=== PATIENT | male | born 1955 | race Two or more races ===

== ENCOUNTER → 2016-11-29 | Outpatient (CLI) | payer BC | END | disposition home or self-care (01) | LOC: HKI 14:01 | PROVIDERS: ATTEND Orthopaedic Surgery | DX: M16.0 Bilateral primary osteoarthritis of hip (principal); M25.552 Pain in left hip; M25.551 Pain in right hip ==

== ENCOUNTER → 2016-12-08 | Outpatient (CLI) | payer BC ==
[~2016-12-08] MED LIST: ASPI325T32 PO; BENA20TA48 PO; CLOP75TA27 PO; HYDR-906 PO; METF-382 PO; NASACORT; OMEP40CA6 PO; ROSU20TA PO; TRAM50TA2 PO
== END | disposition home or self-care (01) ==
LOC: HKI 10:23
PROVIDERS: ATTEND Orthopaedic Surgery
DX: Z01.818 Encounter for other preprocedural examination (principal); M16.0 Bilateral primary osteoarthritis of hip; M25.551 Pain in right hip; M25.552 Pain in left hip
CPT/HCPCS: G0463

== ENCOUNTER 2016-12-14 05:30 | Inpatient (IN) | payer BC ==
[2016-12-13 11:27] VITALS: BMI 32.8
[~2016-12-14] VITALS: Ht 170.2 cm; Wt 100.3 kg
[2016-12-14] VITALS (27 sets, daily range): BP systolic 119–165; BP diastolic 67–90; PULSE 68–104; RESP 14–23; Ht 170.2 cm; Wt 100.3 kg
[2016-12-14] MEDS ORDERED: OMEP40CA6 PO (06:44)
[2016-12-14] MEDS ORDERED: BENA20TA48 PO (06:44)
[2016-12-14] MEDS ORDERED: CLOP75TA27 PO (06:44)
[2016-12-14] MEDS ORDERED: ROSU20TA PO (06:48)
[2016-12-14] MEDS ORDERED: NASACORT (06:48)
[2016-12-14] MEDS ORDERED: METF-382 PO (06:48)
[2016-12-14] MEDS ORDERED: oxyCODONE (CR) 10 MG TAB [oxyCONTIN] X1 DOSE PO ONE (07:00)
[2016-12-14] MEDS ORDERED: SOD CHLORIDE 0.9% IV ONE (07:00)
[2016-12-14] MEDS ORDERED: PAIN COCKTAIL-CEFUROXIME IRR ONE ×7 (07:00)
[2016-12-14] MEDS ORDERED: CEFAZOLIN 2GM/50 ML (PMX) 50 ML X1 BEFORE INCISION IVPB ONE (07:00)
[2016-12-14] MEDS ORDERED: PREGABALIN 300 MG PO X1 PO ONE (07:00)
[2016-12-14] MEDS ORDERED: CELECOXIB 400 MG PO X1 DOSE PO ONE (07:00)
[2016-12-14] MEDS ORDERED: TRANEXAMIC ACID IV ONE (07:00)
[2016-12-14] MEDS ORDERED: BUPIVACAINE LIPOSOME/PF 266 MG/20 ML VIAL INFIL ONE (07:00)
[2016-12-14] MEDS ORDERED: traMADOL 50 MG TAB X 1 DOSE PO ONE (07:00)
[2016-12-14] MEDS ORDERED: TRANEXAMIC ACID 950 MG in SOD CHLORIDE 0.9% 100 ML IVPB ONE (07:00)
[2016-12-14] MEDS ORDERED: LACTATED RINGER'S 1,000 ML IV SCH (07:00)
[2016-12-14] MEDS ORDERED: MIDAZOLAM 1 MG/ML 2 ML INJ ONE (07:06)
[2016-12-14] MEDS ORDERED: ROCURONIUM 50 MG INJ ONE (07:06)
[2016-12-14] MEDS ORDERED: PROPOFOL 100 ML ONE (07:06)
[2016-12-14] MEDS ORDERED: FENTAnyl 50 MCG/ML VIAL ONE (07:06)
[2016-12-14] MEDS ORDERED: CEFAZOLIN 1 GM INJ ONE (07:06)
[2016-12-14] MEDS ORDERED: GLYCOPYRROLATE 1 MG INJ ONE (07:06)
[2016-12-14] MEDS ORDERED: ONDANSETRON 4 MG INJ ONE (07:06)
[2016-12-14] MEDS ORDERED: LIDOCAINE 100 MG SYRINGE ONE (07:06)
[2016-12-14] MEDS ORDERED: DEXAMETHASONE 4 MG/ML 1 ML INJ ONE (07:06)
[2016-12-14] MEDS ORDERED: NEOSTIGMINE 3 MG/3 ML SYRINGE ONE (07:06)
--- NOTE | 2016-12-14 07:18 | HPN ---
Date/Time of Note Date/Time of Note DATE: 12/14/16 TIME: 07:17 Interval H&P Admission Note Pt. seen H&P reviewed: No system changes No change from H&P by Dr. Juan Miguel Henry on 12/07/16 MOSHE ZENDEJAS MD Dec 14, 2016 07:17
[2016-12-14] MEDS ORDERED: VANCOMYCIN 1 GM INJ ONE (08:11)
[2016-12-14] MEDS ORDERED: SODIUM CL BACTERIOSTATIC 30 ML INJ ONE (08:11)
[2016-12-14] MEDS ORDERED: POLYMYXIN B 500000 UNIT INJ ONE (08:11)
[2016-12-14] MEDS ORDERED: MEPERIDINE 25 MG INJ IV PRN (08:30)
[2016-12-14] MEDS ORDERED: hydrALAzine 20 MG INJ IV PRN (08:30)
[2016-12-14] MEDS ORDERED: HYDROmorphONE (0.2 MG/ML) 10ML SYG IV PRN ×3 (08:30)
[2016-12-14] MEDS ORDERED: MIDAZOLAM 1 MG/ML 2 ML INJ IV PRN (08:30)
[2016-12-14] MEDS ORDERED: TRIMETHOBENZAMIDE 100 MG/ML VIAL IM PRN (08:30)
[2016-12-14] MEDS ORDERED: EPHEDrine SULFATE 50 MG/5 ML SYG IV PRN (08:30)
[2016-12-14] MEDS ORDERED: ONDANSETRON 4 MG INJ IV PRN ×2 (08:30→14:00)
[2016-12-14] MEDS ORDERED: DIPHENHYDRAMINE 50 MG INJ IV PRN (08:30)
[2016-12-14] MEDS ORDERED: LABETALOL HCL 20MG INJ IV PRN (08:30)
[2016-12-14] MEDS ORDERED: FENTAnyl 50 MCG/ML VIAL IV PRN ×3 (08:30)
[2016-12-14] MEDS ORDERED: THROMBIN 5000 UNIT VIAL ONE (09:14)
[2016-12-14] MEDS ORDERED: BACITRACIN 50000 UNITS INJ IRR ONE (09:20)
[2016-12-14] MEDS ORDERED: ETOMIDATE 20 MG INJ ONE (09:31)
[2016-12-14] MEDS ORDERED: EXPAREL NOTE (BUPIVICAINE LIPOSOMAL) XX SCH (10:00)
[2016-12-14] MEDS: LACTATED RINGER'S 1,000 ML IV SCH ×2 (10:01→17:52)
--- NOTE | 2016-12-14 10:15 | PN ---
Date/Time of Note Date/Time of Note DATE: 12/14/16 TIME: 10:13 Assessment/Plan Lines/Catheters IV Catheter Type (from Nrsg): Peripheral IV Assessment/Plan Assessment/Plan Stable in PACU, s/p left anterior SHEILA -cont abx -pain meds as needed -ASA/SCDs for DVT prophylaxis -OOB with PT -monitor drain -check AM labs -d/c keating in AM XR of the left hip is pending at this time Subjective 24 Hr Interval Summary Doing well in PACU. Denies any pain. Sleepy from anesthesia. Moving all extremities. Exam/Review of Systems Vital Signs Vitals Vital Signs Date Time Temp Pulse Resp B/P Pulse Ox O2 Delivery O2 Flow Rate FiO2 12/14/16 06:54 97.4 68 18 145/90 97 Room Air Exam Free Text/Dictation Dressing dry Incision clean, dry, and intact without redness or drainage 5/5 Quadriceps, Tibialis Anterior, EHL, Gastroc, Soleus, Peroneals Normal sensation Palpable DT/PT, CR <2 sec No distal edema VON PIERSON PA-C Dec 14, 2016 10:15
--- NOTE | 2016-12-14 10:18 | OPPN ---
Date/Time of Note Date/Time of Note DATE: 12/14/16 TIME: 10:17 Operative/Procedure Note Dictation # [id number] Pre-Operative Diagnosis Left Hip OA Post-Operative Diagnosis Same Procedure Left Anterior SHEILA Surgeon: MOSHE ZENDEJAS MD Serging Machine Operator Automatic: VON PIERSON PA-C Anesthesiologist: Dakota Scott M.D. Findings Severe OA Blood Usage/Administration None Implants/Grafts Depuy SHEILA Estimated blood loss: other Drains Hemovac x 1 Specimens Femoral Head Complications: None Anesthesia type: spinal MOSHE ZENDEJAS MD Dec 14, 2016 10:18
[2016-12-14 10:28] LABS: HEMATOCRIT 36.6 % (42.0-52.0); HEMOGLOBIN 12.3 g/dl (14.0-18.0)
[2016-12-14] MEDS ORDERED: ASPIRIN (EC) 325 MG TAB PO ONE ×2 (10:28→10:30)
[2016-12-14] MEDS ORDERED: MAGNESIUM HYDROXIDE 30ML CUP PO PRN (10:30)
[2016-12-14] MEDS ORDERED: BISACODYL 10 MG SUPP PR PRN (10:30)
[2016-12-14] MEDS ORDERED: NA PHOSPHATE/BIPHOS 133 ML ENEMA PR PRN (10:30)
[2016-12-14] MEDS ORDERED: metFORMIN 500 MG TAB PO PRN (10:30)
[2016-12-14] MEDS ORDERED: NACL 0.9% 3 ML SYG IV SCH (10:30)
[2016-12-14 10:31] LABS: POTASSIUM 3.7 mmol/L (3.5-5.1)
[2016-12-14 10:34] LABS: CALCIUM 8.1 mg/dl (8.4-10.2); CREATININE 0.91 mg/dl (0.61-1.24)
[2016-12-14 10:53] LABS: ADD UMIC YES; URINE BILIRUBIN (Dip) NEGATIVE (NEGATIVE); URINE BLOOD (Dip) 3+ (NEGATIVE); URINE COLOR LT. YELLOW (YELLOW); URINE GLUCOSE (Dip) NEGATIVE (NEGATIVE); URINE KETONES (Dip) NEGATIVE (NEGATIVE); URINE LEUKOCYTE ESTERASE (Dip) NEGATIVE (NEGATIVE); URINE NITRITE (Dip) NEGATIVE (NEGATIVE); URINE TOTAL PROTEIN (Dip) TRACE (NEGATIVE); URINE UROBILINOGEN (Dip) 0.2 E.U./dL (0.1-1.0)
--- NOTE | 2016-12-14 10:53 | RADRPT ---
PROCEDURE: XR Pelvis CLINICAL INDICATION: Postop TECHNIQUE: An AP radiograph was submitted. COMPARISON: To the pelvis study done intraoperatively earlier on the same date FINDINGS: Osseous structures: A well seated pleural left hip replacement is again evident. The osseous elemen ts otherwise appear intact. Degenerative endplate changes are seen at the lumbosacral junction. Joint spaces: Moderate degenerative changes seen about the right hip. The sacroiliac joints appear unremarkable. the sacroiliac joints appear unremarkable without significant erosions or sclerosis. Soft tissues: A drain is seen about the left hip and superficial milagro been placed. A Brandon daniel ter is again evident. IMPRESSION: 1. Well seated total left hip replacement with a drain in place. 2. Moderate degenerative change seen about the right hip with degenerative changes also seen at the lumbosacral junction. 3. A Brandon catheter is noted to be in place. Physician Frank Date Time Electronically viewed and signed by Physician Frank on 12/14/2016 10:53 /
[2016-12-14] MEDS: CEFAZOLIN 2 GM/50 ML (PMX) 50 ML IVPB SCH ×2 (10:55→18:41)
--- NOTE | 2016-12-14 11:10 | RADRPT ---
PROCEDURE: XR Left Hip. CLINICAL INDICATION: Post op in PACU TECHNIQUE: Single AP view of the left hip. COMPARISON: 12/14/2016 hip x-ray FINDINGS: Intact total left hip prosthesis with anatomic alignment of the acetabular and femoral components. No evidence of hardware failure or loosening. Surgical drain overlies the left hip with suture stap les in place. No fracture or dislocation. IMPRESSION: Intact left total hip prosthesis and postsurgical changes as discussed above. RPTAT:AAJJ Physician Milady Date Time Electronically viewed and signed by Physician Milady on 12/14/2016 11:10 [place]/
[2016-12-14 11:25] LABS: URINE RBCS >50 /HPF (0)
--- NOTE | 2016-12-14 11:26 | OPR ---
DATE OF OPERATION: 12/14/2016 PREOPERATIVE DIAGNOSIS: Left hip osteoarthritis. POSTOPERATIVE DIAGNOSIS: Left hip osteoarthritis. OPERATION PERFORMED: Left anterior total hip arthroplasty. SURGEON: Moshe Morales MD SALES OPERATIONS COORDINATOR: MELANIE Naqvi COMPONENTS USED: DePuy size 52 mm Gription [place] cup, 52/36 neutral Ultrex polyethylene liner, size 7 high offset Actis stem, 36+1.5 ceramic head. ANESTHESIA: Spinal plus general endotracheal intubation, plus periarticular injection. ANESTHESIOLOGIST: Dakota Scott MD ESTIMATED BLOOD LOSS: 400 mL. INTRAVENOUS FLUIDS: 3000 mL crystalloid. SPECIMENS: Femoral head. DRAINS: Hemovac x1. COMPLICATIONS: None. DISPOSITION: The patient tolerated procedure well and was taken to the recovery room in stable condition. INDICATIONS: The patient is a 61-year-old gentleman who has had progressive worsening pain in the left hip with radiographic evidence of severe osteoarthritis. He has failed nonsurgical means of treatment to control his pain including activity modifications, pain medications and ambulatory assist devices. Despite these measures, he has had worsening pain and I felt he would benefit from a total hip arthroplasty through an anterior approach. 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 The risks, benefits, and alternatives of the procedure were explained in detail to the patient. I explained the risks of the surgery to include, but not be limited to: bleeding and possible need for blood transfusion; infection; pain; stiffness; neurovascular injury with possible numbness, weakness, and/or paralysis anywhere from the hip down to the toes; fracture; instability; dislocation; leg length inequality; wear and/or loosening of the prosthesis and possible need for future revision; blood clots; pulmonary embolism; and anesthetic complications such as heart attack, stroke, GI bleed, pneumonia, and/ or . Ample time was allowed for the patient to ask questions, all of which were addressed and answered. The patient understood the risks involved and wished to proceed. Informed consent was signed prior to the procedure. PROCEDURE: The patient's left hip was initialed with a marking pen in the preoperative area to identify the correct operative site. The patient was brought to the operating room and transferred [facility] the [facility] the [facility] where a spinal anesthetic was administered. The patient was then anesthetized and intubated. A Brandon catheter was placed. Both feet were placed into well padded boots which were then placed into the leg holders of the traction booms. A timeout was performed to confirm that the left side was the correct operative site. The patient was given 2 g of intravenous Ancef within one hour prior to the procedure. The operative hip was prepped and draped in the usual sterile fashion. A 10 cm oblique incision was made over the anterior aspect of the hip and carried down through subcutaneous tissue and fat with sharp dissection. The previous scar was excised and the incision was extended proximally and distally. The tensor fascia radha was incised along the length of the wound. The tensor fascia muscle was retracted laterally and the sartorius medially. The anterior circumflex vessels were identified and tied off with 2-0 silk suture and coagulated with the Tissue Link gas line repairer. The rectus femoris was elevated off the anterior capsule and an anterior capsulectomy performed. A femoral neck osteotomy was made and the head removed from the acetabulum. The acetabulum was denuded of cartilage circumferentially, as was the femoral head. Retractors were placed around the acetabulum. The remnants of the labrum and ligamentum teres were excised. I reamed the acetabulum to the medial wall and then went into an anatomic position and increased the reamer size in 2 mm increments until I got a good bite and was down to bleeding subchondral bone. The [place] cup was opened and impacted into the acetabulum and sat flush circumferentially, getting a good bite. C-arm imaging showed it had about 40 to 45 degrees of abduction and 20 degrees of anteversion. The real liner was opened and impacted into the acetabulum and sat flush circumferentially. Attention was turned towards the femur. The operative leg was carefully lowered to the floor with the leg adducted. The foot was then externally rotated to approximately 110 degrees. A posteromedial release was performed to optimize exposure. The femoral hook was placed underneath the proximal femur and the hydraulic lift was then used to elevate the femur up out of the wound. The isaac cutter osteotome was used to remove the remaining overhanging greater trochanter. The femur was then broached, going up in one size increments until it sat flush with the neck cut and a stable fit was achieved. The trial neck and head were assembled and reduced into the acetabulum. Fluoroscopic imaging showed the components to be in good position and the leg lengths and offsets to be equal. At this point, the trial was dislocated and the trial broach removed. The canal was irrigated and dried. The real stem was opened and impacted into the femur. The trunnion was irrigated and dried, and the real femoral head was impacted onto the trunnion, and reduced into the acetabulum. The soft tissues were infiltrated with a mixture of 150 mg of 0.5% Bupivacaine, 8 mg of Duramorph, 300 mcg of epinephrine, 30 mg of Toradol, 100 mcg of clonidine, 750 mg of cefuroxime and 86 mL of normal saline, followed by an injection of 266 mg of liposomal Bupivacaine. At this point the hip was irrigated with a mixture of betadine/saline and then antibiotic saline with pulsatile lavage. A Hemovac drain was placed in the deep portion of the wound and brought out the anterolateral thigh. There was good hemostasis. The tensor fascia radha was repaired with a running #1 Vicryl. The deep fat layer was irrigated and closed with 2-0 Stratafix and the subcutaneous layer closed with 3 -0 Vicryl and the skin was sealed with milagro. The drain was secured with 3-0 nylon. The sponge and needle counts were correct at the end of the case. The wound was covered with an occlusive dressing. The patient was awakened, extubated, and taken to the recovery room in stable condition. Dictated By: MOSHE MIN/LISHA Conf#: [id number] DID#: [id number] MTDD
[2016-12-14] MEDS ORDERED: GLUCOSE GEL 15 GRAM TUBE PO PRN ×2 (11:30)
[2016-12-14] MEDS ORDERED: DEXTROSE 50% 50 ML SYRINGE IV PRN ×2 (11:30)
[2016-12-14] MEDS ORDERED: GLUCOSE GEL 15 GRAM TUBE BUCCAL PRN (11:30)
[2016-12-14] MEDS ORDERED: GLUCAGON 1 MG INJ IM PRN (11:30)
[2016-12-14] MEDS: traMADol 50 MG TAB PO SCH ×3 (12:37→23:32)
[2016-12-14] MEDS: ACETAMINOPHEN 1000MG/100ML IV 100 ML IVPB SCH ×3 (12:37→23:32)
[2016-12-14] MEDS ORDERED: TRANEXAMIC ACID 1,000 MG in SOD CHLORIDE 0.9% 100 ML IVPB ONE ×2 (13:30→16:30)
[2016-12-14] MEDS ORDERED: ALPRAZOLAM 0.25 MG TAB PO PRN (13:30)
--- NOTE | 2016-12-14 13:38 | RADRPT ---
PROCEDURE: X-ray fluoroscopy guidance CLINICAL INDICATION: Left hip pain, left hip replacement, fluoroscopic guidance. TECHNIQUE: Fluoroscopic guidance was utilized for an intraoperative procedure. COMPARISON: None available FINDINGS: Fluoroscopic guidance was utilized for and intraoperative procedure. 0.5 minutes of fluoroscopy time was utilized for the procedure. 17 x-ray images were obtained during the procedure in progress. Fin al images demonstrate intraoperative prosthetic components in appropriate position and alignment. IMPRESSION: X-ray fluoroscopic guidance utilized for intraoperative procedure. Final images demonstrate intraoperative prosthetic components in appropriate position and alignment. Please see procedure note for details. RPTAT: AA .Vin Salmon MD, Date Time Electronically viewed and signed by .Vin Salmon MD, on 12/14/2016 13:38 .P/
--- NOTE | 2016-12-14 13:55 | CONS ---
DATE OF ADMISSION: 12/14/2016 DATE OF CONSULTATION: 12/14/2016 TYPE OF CONSULTATION: Nephrology. Thank you very much, Dr. Morales, for allowing me to evaluate the above patient, a 61-year-old male w ho just underwent left hip arthroplasty. HISTORICAL EVENTS: As you well know, this patient has had progressive disabling pain involving his left hip, and elected to proceed with surgical intervention. Postoperatively, on the orthopedic sobia or he is comfortable without cough, wheezing, shortness of breath, nausea, vomiting, abdominal or ch est pain. PAST MEDICAL HISTORY: Includes hypertension, hyperlipidemia, prediabetes, history of migraine heada ches, history of hypogonadism, history of gastroesophageal reflux disease. A previous PTCA and sten t placement with nuclear treadmill prior to admission that was unrevealing for ischemia. ALLERGIES: NONE. MEDICATIONS PRIOR TO ADMISSION: 1. Benazepril 10 mg per day. 2. Metformin 500 mg 2 tablets b.i.d. with meals. 3. Nasacort 2 sprays in each nostril daily. 4. Prilosec 40. 5. Crestor 20 mg per day. 6. B12 1000 mcg per day. 7. Xanax 0.25 p.r.n. 8. Zofran. 9. Fish oil. 10. Folic acid 800 mcg per day. 11. Melatonin 3 mg at bedtime. 12. Vitamin D3 5000 units per day. PHYSICAL EXAMINATION: GENERAL: Dennard male, no acute distress. VITAL SIGNS: BP 122/80, pulse 70, respirations are 20. He was afebrile. EYES: Extraocular muscles were full. NOSE, MOUTH, AND THROAT: Normal. NECK: Supple. There was no jugular venous distention, thyroid enlargement or adenopathy. LUNGS: Clear. HEART: Rhythm regular, no murmur. No third or fourth sound. ABDOMEN: Nontender. Liver and spleen were not palpable. No masses or tenderness were noted. EXTREMITIES: No edema. Calves nontender. IMPRESSION: 1. Status post right hip arthroplasty, stable. 2. History of coronary artery disease, presently asymptomatic. Will observe for ischemic symptoms postoperatively. 3. Will evaluate daily for signs and symptoms of thromboembolic disease despite needed DVT prophyla xis. 4. Hypertension, to continue ARELIS and observe postoperatively. Dictated By: CALVIN PALMA MD MR/NTS Conf#: [id number] [facility]#: [id number]
[2016-12-14] MEDS ORDERED: DIPHENHYDRAMINE 25 MG CAP PO PRN (14:00)
[2016-12-14] MEDS ORDERED: HYDROmorphONE 1 MG/ML SYG IV PRN (14:00)
[2016-12-14] MEDS ORDERED: BACITRACIN 50000 UNITS INJ ONE (15:12)
[2016-12-14] MEDS: oxyCODONE 5 MG TAB PO PRN (16:45)
--- NOTE | 2016-12-14 17:23 | RADRPT ---
PROCEDURE: XR Pelvis. CLINICAL INDICATION: Status post left hip replacement TECHNIQUE: Single AP view of the pelvis. COMPARISON: December 14, 2016 at 10:33 a.m. FINDINGS: Left hip replacement is identified. Prosthetic components appear in appropriate position and alignm ent. The osseous structures are intact. No destructive bony lesions are observed. Moderate narrow ing of the right hip joint is seen. Degenerative changes are noted in the lower lumbar spine. Surg ical drain is seen over the left hip. Soft tissue air over the left hip is procedural in nature. IMPRESSION: Left hip replacement. Prosthetic components are in appropriate position and alignment. Moderate osteoarthritis of the right hip. Degenerative changes in the lower lumbar spine. RPTAT: AA .Vin Salmon MD, Date Time Electronically viewed and signed by .Vin Salmon MD, on 12/14/2016 17:23 .P/
[2016-12-14] MEDS: INSULIN ASPART [NOVOLOG] 3 ML PEN SC SCH (17:25)
[2016-12-14] MEDS: PANTOPRAZOLE (EC) 40 MG TAB PO SCH (17:53)
[2016-12-14] MEDS: metFORMIN 500 MG TAB PO SCH (17:54)
[2016-12-14] MEDS: PREGABALIN 25 MG CAP PO SCH (20:42)
[2016-12-14] MEDS: ATORVASTATIN 80 MG TAB PO SCH (20:42)
[2016-12-14] MEDS: DOCUSATE SODIUM 100 MG CAP PO SCH (20:42)
[2016-12-15 00:02] VITALS: BP 149/84; RESP 20
[2016-12-15] MEDS: ACCUCHECK XX SCH (02:00)
[2016-12-15] MEDS: CEFAZOLIN 2 GM/50 ML (PMX) 50 ML IVPB SCH (02:25)
[2016-12-15] MEDS: LACTATED RINGER'S 1,000 ML IV SCH ×3 (02:26→17:40)
[2016-12-15] MEDS: oxyCODONE 5 MG TAB PO PRN ×3 (03:55→19:06)
[2016-12-15] MEDS: PANTOPRAZOLE (EC) 40 MG TAB PO SCH ×2 (05:11→17:40)
[2016-12-15] MEDS: ACETAMINOPHEN 1000MG/100ML IV 100 ML IVPB SCH (05:12)
[2016-12-15] MEDS: traMADol 50 MG TAB PO SCH ×3 (05:12→17:40)
[2016-12-15 05:18] LABS: HEMATOCRIT 34.5 % (42.0-52.0); HEMOGLOBIN 11.4 g/dl (14.0-18.0)
[2016-12-15 05:25] LABS: POTASSIUM 3.8 mmol/L (3.5-5.1)
[2016-12-15 05:27] LABS: CREATININE 0.89 mg/dl (0.61-1.24)
[2016-12-15 05:28] LABS: CALCIUM 8.5 mg/dl (8.4-10.2)
[2016-12-15] MEDS: INSULIN ASPART [NOVOLOG] 3 ML PEN SC SCH ×3 (07:20→17:25)
[2016-12-15] MEDS ORDERED: CYANOCOBALAMIN 500 MCG TAB PO ONE (08:00)
[2016-12-15 08:02] VITALS: BP 134/86; RESP 20
--- NOTE | 2016-12-15 08:29 | CONS ---
Date/Time of Note Date/Time of Note DATE: 12/15/16 TIME: 08:26 Assessment/Plan Assessment/Plan Additional Assessment/Plan 1. Status post left hip replacement 2. History of coronary artery disease, presently asymptomatic 4. Hypertension, controlled 5. Labs rev Consultation Date/Type/Reason Admit Date/Time Dec 14, 2016 at 05:54 Initial Consult Date Detailed Summary Respiratory: No shortness of breath Cardiovascular: No chest pain Gastrointestinal: no complaints Genitourinary: other (keating in place) Musculoskeletal: bone/joint pain (mild left hip pain) Exam/Review of Systems Vital Signs Vitals Vital Signs Date Time Temp Pulse Resp B/P Pulse Ox O2 Delivery O2 Flow Rate FiO2 12/15/16 08:02 98.8 75 20 134/86 98 12/14/16 13:51 Nasal Cannula 2.0 Intake and Output 12/14/16 12/14/16 12/15/16 15:00 23:00 07:00 Intake Total 3389.5 ml 830 ml 3050 ml Output Total 680 ml 2710 ml 3240 ml Balance 2709.5 ml -1880 ml -190 ml Exam Neck: No jvd Respiratory: clear to auscultation Cardiovascular: regular rate and rhythm Gastrointestinal: soft Extremities: No edema (and no calf tend bilat) Results Result Diagram: 12/15/16 0426 12/15/16 0426 Results 24 hrs Laboratory Tests Test 12/14/16 10:00 12/14/16 10:13 12/14/16 17:51 12/15/16 04:26 Urine Bilirubin NEGATIVE Urine Clarity CLEAR Urine Color LT. YELLOW Urine Glucose NEGATIVE Urine Hemoglobin 3+ H Urine Ketones NEGATIVE Urine Leukocyte Esterase NEGATIVE Urine Microscopic RBC >50 Urine Microscopic WBC NONE SEEN Urine Nitrite NEGATIVE Urine Specific Ferrum <=1.005 L Urine Total Protein TRACE Urine Urobilinogen 0.2 E.U./dL Urine pH 6.5 Anion Gap 16 14 Blood Urea Nitrogen 14 13 Calcium Level 8.1 L 8.5 Carbon Dioxide Level 27 29 Chloride Level 103 101 Creatinine 0.91 0.89 Glucose Level 156 127 Hematocrit 36.6 L 34.5 L Hemoglobin 12.3 L 11.4 L Potassium Level 3.7 3.8 Sodium Level 142 140 Bedside Glucose 142 Medications Medications Current Medications Miscellaneous Information 1 ea NOTE XX ; Start 12/14/16 at 10:00; Stop 12/18/16 at 09:59 Benazepril HCl (Lotensin) 20 mg DAILY PO ; Start 12/15/16 at 09:00 Atorvastatin Calcium 80 mg 80 mg DAILY@21 PO Last administered on 12/14/16 20: 42; Admin Dose 80 MG; Start 12/14/16 at 21:00 Lactated Ringer's (Lr) 1,000 ml @ 125 mls/hr Q8H IV Last administered on 02:26; Admin Dose 125 MLS/HR; Start 12/14/16 at 10:01 Celecoxib 200 mg 200 mg DAILY PO ; Start 12/15/16 at 09:00 Acetaminophen (Ofirmev 1000mg/ 100ml Iv) 100 ml @ 400 mls/hr Q6 IVPB Last administered on 12/15/16 05:12; Admin Dose 400 MLS/HR; Start 12/14/16 at 12:00; Stop 12/15/16 at 11:59 Tramadol HCl (Ultram) 50 mg Q6 PO Last administered on 12/15/16 05:12; Admin Dose 50 MG; Start 12/14/16 at 12:00; Stop 12/17/16 at 11:59 Oxycodone HCl (Roxicodone) 5 mg Q4H PRN PO PAIN LEVEL 1-3 Last administered on 12/14/16 16:45; Admin Dose 5 MG; Start 12/14/16 at 14:00 Oxycodone HCl (Roxicodone) 10 mg Q4H PRN PO PAIN LEVEL 4-7 Last administered on 12/15/16 03:55; Admin Dose 10 MG; Start 12/14/16 at 14:00 Hydromorphone HCl (Dilaudid) 1 mg Q3H PRN IV PAIN LEVEL 8-10; Start 12/14/16 at 14:00 Ondansetron HCl (Zofran Inj) 4 mg Q6H PRN IV NAUSEA AND/OR VOMITING; Start 12/14 at 14:00 Bisacodyl (Dulcolax Supp) 10 mg Q12H PRN RI CONSTIPATION; Start 12/14/16 at 10: 30 Magnesium Hydroxide (Milk Of Mag) 30 ml BID PRN PO CONSTIPATION; Start 12/14/16 at 10:30 Sodium Biphosphate/ Sodium Phosphate (Fleet Enema) 133 ml DAILY PRN RI CONSTIPATION; Start 12/14/16 at 10:30 Docusate Sodium (Colace) 100 mg BID PO Last administered on 12/14/16 20:42; Admin Dose 100 MG; Start 12/14/16 at 21:00 Diphenhydramine HCl (Benadryl) 25 mg Q6H PRN PO PRURITUS; Start 12/14/16 at 14: 00 Aspirin (Ecotrin) 325 mg BID PO ; Start 12/15/16 at 09:00 Pregabalin (Lyrica) 50 mg BID PO Last administered on 12/14/16 20:42; Admin Dose 50 MG; Start 12/14/16 at 21:00 Pantoprazole (Protonix Tab) 40 mg BID@,18 PO Last administered on 12/15/16 05 :11; Admin Dose 40 MG; Start 12/14/16 at 18:00 Miscellaneous Information 1 ea NOTE XX ; Start 12/14/16 at 11:30 Glucose (Glutose) 15 gm Q15M PRN PO DECREASED GLUCOSE; Start 12/14/16 at 11:30 Glucose (Glutose) 22.5 gm Q15M PRN PO DECREASED GLUCOSE; Start 12/14/16 at 11:30 Dextrose (D50w Syringe) 25 ml Q15M PRN IV DECREASED GLUCOSE; Start 12/14/16 at 11:30 Dextrose (D50w Syringe) 50 ml Q15M PRN IV DECREASED GLUCOSE; Start 12/14/16 at 11:30 Glucagon (Glucagen) 1 mg Q15M PRN IM DECREASED GLUCOSE; Start 12/14/16 at 11:30 Glucose (Glutose) 15 gm Q15M PRN BUCCAL DECREASED GLUCOSE; Start 12/14/16 at 11: 30 Alprazolam (Xanax) 0.25 mg BID PRN PO ANXIETY; Start 12/14/16 at 13:30 Diagnostic Test (Pha) (Accucheck) 1 ea 02 XX ; Start 12/15/16 at 02:00 Cholecalciferol (Vitamin D) 5,000 unit DAILY PO ; Start 12/15/16 at 09:00 Folic Acid (Folic Acid) 0.8 mg DAILY PO ; Start 12/15/16 at 09:00 CALVIN PALMA MD Dec 15, 2016 08:28
--- NOTE | 2016-12-15 08:46 | PN ---
Date/Time of Note Date/Time of Note DATE: 12/15/16 TIME: 08:44 Assessment/Plan Lines/Catheters IV Catheter Type (from Nrsg): Peripheral IV Brandon in Place (from Nrsg): Yes Assessment/Plan Assessment/Plan Stable POD #1, s/p left anterior SHEILA -d/c abx -pain meds as needed -ASA/SCDs for DVT prophylaxis -OOB with PT -check AM labs -drain removed -d/c planning. Possible d/c home tomorrow Subjective 24 Hr Interval Summary Doing well. No acute overnight events. Mild pain. Began PT yesterday. VSS, afebrile. Exam/Review of Systems Vital Signs Vitals Vital Signs Date Time Temp Pulse Resp B/P Pulse Ox O2 Delivery O2 Flow Rate FiO2 12/15/16 08:02 98.8 75 20 134/86 98 12/14/16 13:51 Nasal Cannula 2.0 Intake and Output 12/14/16 12/14/16 12/15/16 15:00 23:00 07:00 Intake Total 3389.5 ml 830 ml 3050 ml Output Total 680 ml 2710 ml 3240 ml Balance 2709.5 ml -1880 ml -190 ml Exam Free Text/Dictation Hemovac: 330cc Dressing dry Incision clean, dry, and intact without redness or drainage 5/5 Quadriceps, Tibialis Anterior, EHL, Gastroc, Soleus, Peroneals Normal sensation Palpable DT/PT, CR <2 sec No distal edema Results Result Diagram: 12/15/1642512/15/16 0426 VON PIERSON PA-C Dec 15, 2016 08:45
[2016-12-15] MEDS: CELECOXIB 200 MG CAP PO SCH (08:48)
[2016-12-15] MEDS: metFORMIN 500 MG TAB PO SCH ×2 (08:48→17:39)
[2016-12-15] MEDS: DOCUSATE SODIUM 100 MG CAP PO SCH ×2 (08:48→21:47)
[2016-12-15] MEDS: ASPIRIN (EC) 325 MG TAB PO SCH ×2 (08:49→21:47)
[2016-12-15] MEDS: CHOLECALCIFEROL 1,000 UNIT TAB PO SCH (08:50)
[2016-12-15] MEDS: BENAZEPRIL 20 MG TAB PO SCH (08:50)
[2016-12-15] MEDS: PREGABALIN 25 MG CAP PO SCH ×2 (08:50→21:48)
[2016-12-15] MEDS: FOLIC ACID 0.4 MG TAB PO SCH (08:51)
[2016-12-15 13:02] LABS: ADD UMIC YES; URINE BILIRUBIN (Dip) NEGATIVE (NEGATIVE); URINE BLOOD (Dip) TRACE (NEGATIVE); URINE COLOR LT. YELLOW (YELLOW); URINE KETONES (Dip) NEGATIVE (NEGATIVE); URINE LEUKOCYTE ESTERASE (Dip) NEGATIVE (NEGATIVE); URINE NITRITE (Dip) NEGATIVE (NEGATIVE); URINE TOTAL PROTEIN (Dip) NEGATIVE (NEGATIVE); URINE UROBILINOGEN (Dip) 0.2 E.U./dL (0.1-1.0)
[2016-12-15 19:00] VITALS: BP 139/87; RESP 19
[2016-12-15] MEDS: ATORVASTATIN 80 MG TAB PO SCH (21:47)
[2016-12-16] MEDS: ACCUCHECK XX SCH (01:01)
[2016-12-16] MEDS: oxyCODONE 5 MG TAB PO PRN ×2 (01:25→08:31)
[2016-12-16] MEDS: LACTATED RINGER'S 1,000 ML IV SCH ×2 (01:28→10:01)
[2016-12-16 05:26] LABS: HEMATOCRIT 37.1 % (42.0-52.0); HEMOGLOBIN 12.4 g/dl (14.0-18.0)
[2016-12-16 05:39] LABS: POTASSIUM 4.1 mmol/L (3.5-5.1)
[2016-12-16 05:42] LABS: CREATININE 0.92 mg/dl (0.61-1.24)
[2016-12-16 05:43] LABS: CALCIUM 8.5 mg/dl (8.4-10.2)
[2016-12-16] MEDS: PANTOPRAZOLE (EC) 40 MG TAB PO SCH (06:22)
[2016-12-16] MEDS: traMADol 50 MG TAB PO SCH ×3 (06:22→13:19)
[2016-12-16] MEDS: INSULIN ASPART [NOVOLOG] 3 ML PEN SC SCH ×2 (07:20→11:10)
[2016-12-16 08:25] VITALS: BP 142/87; RESP 18
[2016-12-16] MEDS: metFORMIN 500 MG TAB PO SCH (08:28)
[2016-12-16] MEDS: FOLIC ACID 0.4 MG TAB PO SCH (08:29)
[2016-12-16] MEDS: CELECOXIB 200 MG CAP PO SCH (08:29)
[2016-12-16] MEDS: ASPIRIN (EC) 325 MG TAB PO SCH (08:29)
[2016-12-16] MEDS: DOCUSATE SODIUM 100 MG CAP PO SCH (08:29)
[2016-12-16] MEDS: BENAZEPRIL 20 MG TAB PO SCH (08:30)
[2016-12-16] MEDS: CHOLECALCIFEROL 1,000 UNIT TAB PO SCH (08:31)
[2016-12-16] MEDS: PREGABALIN 25 MG CAP PO SCH (08:32)
--- NOTE | 2016-12-16 10:49 | PN ---
Date/Time of Note Date/Time of Note DATE: 12/16/16 TIME: 10:47 Assessment/Plan Lines/Catheters IV Catheter Type (from Nrsg): Saline Lock Brandon in Place (from Nrsg): No Assessment/Plan Assessment/Plan Stable POD #2, s/p left anterior SHEILA -pain meds as needed -OOB with PT -ASA/SCDs -dressing changed -d/c home today -follow up in the office 12/24/16 Subjective 24 Hr Interval Summary Doing well. No acute overnight events. Denies significant pain. VSS, afebrile. Would like to go home today. Exam/Review of Systems Vital Signs Vitals Vital Signs Date Time Temp Pulse Resp B/P Pulse Ox O2 Delivery O2 Flow Rate FiO2 12/16/16 08:25 98.9 102 18 142/87 95 12/14/16 13:51 Nasal Cannula 2.0 Intake and Output 12/15/16 12/15/16 12/16/16 15:00 23:00 07:00 Intake Total 1200 ml 680 ml 700 ml Output Total 800 ml Balance 1200 ml 680 ml -100 ml Exam Free Text/Dictation Dressing dry Incision clean, dry, and intact without redness or drainage 5/5 Quadriceps, Tibialis Anterior, EHL, Gastroc, Soleus, Peroneals Normal sensation Palpable DT/PT, CR <2 sec No distal edema Results Result Diagram: 12/16/1641912/16/16419 VON PIERSON PA-C Dec 16, 2016 10:49
--- NOTE | 2016-12-16 10:50 | PDOCDIS ---
Discharge Instructions DIAGNOSIS Discharge Diagnosis: s/p left anterior SHEILA CONDITION Patient Condition: Good HOME CARE INSTRUCTIONS: Diet Instructions: Regular ACTIVITY: Activity Restrictions: Slowly Increase Activity Rest between Activity Avoid heavy lifting Do not operate Machinery Do not operate Power Tool Avoid Heavy Housework Keep Limb Elevated Bathing Restrictions: Shower FOLLOW UP/APPOINTMENTS Appointments follow up in the office on 12/24/16 OTHER ORDERS: Other Orders: S/P Anterior SHEILA Physical Therapy: Three times per week at home x 2 weeks Daily in Rehab/SNF WB STATUS: WBAT Strengthening exercises for both upper and un-operated lower extremities. 1. Gait training with front wheeled walker 2. Wide base gait, no pivot turns. 3. Abductor strengthening. 4. Quadriceps and hamstring strengthening. 5. May switch to cane in contra lateral hand 6 weeks after surgery. 6. Physical Therapy can open case if nursing is not available. 7. Ice Packs while at rest to surgical wound for 20 minutes, 3 times/day. 8. Patient requires mobile SCDs to reduce risk of developing DVT following SHEILA. Patient will use the mobile SCDs for 30 days postoperatively. Hip Precautions: No posterior hip precautions. Bathing assistance by home health aide twice weekly if Medicare patient. Occupational Therapy: Evaluation for assistive devices and ADL training. Wound Care: Keep incision dry & covered with Tegaderm until first visit with Dr. Morales Anticoagulation Orders: Enteric Coated Aspirin 325 mg po bid x 6 weeks from date of surgery Follow-up:Call for an appointment with Dr. Morales in 1 week after discharged from hospital at DME Orders: [place], 3-in-1 Commode, Mobile SCDs VON PIERSON PA-C Dec 16, 2016 10:50
[2016-12-16] MEDS ORDERED: TRAM50TA2 PO (10:51)
[2016-12-16] MEDS ORDERED: ASPI325T32 PO (10:51)
[2016-12-16] MEDS ORDERED: HYDR-906 PO (10:51)
--- NOTE | 2016-12-16 11:39 | CONS ---
Date/Time of Note Date/Time of Note DATE: 12/16/16 TIME: 11:38 Assessment/Plan Assessment/Plan Additional Assessment/Plan 1. Status post left hip replacement 2. History of coronary artery disease, presently asymptomatic 3. Hypertension, controlled 4. Can dc if ok with ortho and PT Consultation Date/Type/Reason Admit Date/Time Dec 14, 2016 at 05:54 Detailed Summary Respiratory: No cough, No shortness of breath Cardiovascular: No chest pain, No lightheadedness Gastrointestinal: no complaints Genitourinary: no complaints Musculoskeletal: bone/joint pain (mild discomfort left hip) Exam/Review of Systems Vital Signs Vitals Vital Signs Date Time Temp Pulse Resp B/P Pulse Ox O2 Delivery O2 Flow Rate FiO2 12/16/16 08:25 98.9 102 18 142/87 95 12/14/16 13:51 Nasal Cannula 2.0 Intake and Output 12/15/16 12/15/16 12/16/16 15:00 23:00 07:00 Intake Total 1200 ml 680 ml 700 ml Output Total 800 ml Balance 1200 ml 680 ml -100 ml Exam Neck: jvd Respiratory: clear to auscultation Cardiovascular: regular rate and rhythm Gastrointestinal: soft Extremities: edema (and no calf tend) Results Result Diagram: 12/16/16 0420 12/16/16 0420 Results 24 hrs Laboratory Tests Test 12/15/16 12:15 12/15/16 17:37 12/15/16 21:43 12/16/16 04:20 Bedside Glucose 106 147 123 Anion Gap 15 Blood Urea Nitrogen 12 Calcium Level 8.5 Carbon Dioxide Level 30 Chloride Level 98 Creatinine 0.92 Glucose Level 118 Hematocrit 37.1 L Hemoglobin 12.4 L Potassium Level 4.1 Sodium Level 139 Test 12/16/16 08:09 Bedside Glucose 169 Medications Medications Current Medications Miscellaneous Information 1 ea NOTE XX ; Start 12/14/16 at 10:00; Stop 12/18/16 at 09:59 Benazepril HCl (Lotensin) 20 mg DAILY PO Last administered on 12/16/16 08:30; Admin Dose 20 MG; Start 12/15/16 at 09:00 Atorvastatin Calcium 80 mg 80 mg DAILY@21 PO Last administered on 12/15/16 21: 47; Admin Dose 80 MG; Start 12/14/16 at 21:00 Lactated Ringer's (Lr) 1,000 ml @ 125 mls/hr Q8H IV Last administered on 10:02; Admin Dose 125 MLS/HR; Start 12/14/16 at 10:01 Celecoxib (Celebrex) 200 mg DAILY PO Last administered on 12/16/16 08:29; Admin Dose 200 MG; Start 12/15/16 at 09:00 Tramadol HCl (Ultram) 50 mg Q6 PO Last administered on 12/16/16 06:22; Admin Dose 50 MG; Start 12/14/16 at 12:00; Stop 12/17/16 at 11:59 Oxycodone HCl (Roxicodone) 5 mg Q4H PRN PO PAIN LEVEL 1-3 Last administered on 12/16/16 08:31; Admin Dose 5 MG; Start 12/14/16 at 14:00 Oxycodone HCl (Roxicodone) 10 mg Q4H PRN PO PAIN LEVEL 4-7 Last administered on 12/16/16 01:25; Admin Dose 10 MG; Start 12/14/16 at 14:00 Hydromorphone HCl (Dilaudid) 1 mg Q3H PRN IV PAIN LEVEL 8-10; Start 12/14/16 at 14:00 Ondansetron HCl (Zofran Inj) 4 mg Q6H PRN IV NAUSEA AND/OR VOMITING; Start 12/14 at 14:00 Bisacodyl (Dulcolax Supp) 10 mg Q12H PRN [place] CONSTIPATION; Start 12/14/16 at 10: 30 Magnesium Hydroxide (Milk Of Mag) 30 ml BID PRN PO CONSTIPATION; Start 12/14/16 at 10:30 Sodium Biphosphate/ Sodium Phosphate (Fleet Enema) 133 ml DAILY PRN [place] CONSTIPATION; Start 12/14/16 at 10:30 Docusate Sodium (Colace) 100 mg BID PO Last administered on 12/16/16 08:29; Admin Dose 100 MG; Start 12/14/16 at 21:00 Diphenhydramine HCl (Benadryl) 25 mg Q6H PRN PO PRURITUS; Start 12/14/16 at 14: 00 Aspirin (Ecotrin) 325 mg BID PO Last administered on 12/16/16 08:29; Admin Dose 325 MG; Start 3/8/17 at 09:00 Pregabalin (Lyrica) 50 mg BID PO Last administered on 12/16/16 08:32; Admin Dose 50 MG; Start 12/14/16 at 21:00 Pantoprazole (Protonix Tab) 40 mg BID@,18 PO Last administered on 12/16/16 06 :22; Admin Dose 40 MG; Start 12/14/16 at 18:00 Miscellaneous Information 1 ea NOTE XX ; Start 12/14/16 at 11:30 Glucose (Glutose) 15 gm Q15M PRN PO DECREASED GLUCOSE; Start 12/14/16 at 11:30 Glucose (Glutose) 22.5 gm Q15M PRN PO DECREASED GLUCOSE; Start 12/14/16 at 11:30 Dextrose (D50w Syringe) 25 ml Q15M PRN IV DECREASED GLUCOSE; Start 12/14/16 at 11:30 Dextrose (D50w Syringe) 50 ml Q15M PRN IV DECREASED GLUCOSE; Start 12/14/16 at 11:30 Glucagon (Glucagen) 1 mg Q15M PRN IM DECREASED GLUCOSE; Start 12/14/16 at 11:30 Glucose (Glutose) 15 gm Q15M PRN BUCCAL DECREASED GLUCOSE; Start 12/14/16 at 11: 30 Alprazolam (Xanax) 0.25 mg BID PRN PO ANXIETY Last administered on 12/15/16 21: 54; Admin Dose 0.25 MG; Start 12/14/16 at 13:30 Diagnostic Test (Pha) (Accucheck) 1 ea 02 XX ; Start 12/15/16 at 02:00 Cholecalciferol (Vitamin D) 5,000 unit DAILY PO Last administered on 12/16/16 08:31; Admin Dose 5,000 UNIT; Start 12/15/16 at 09:00 Folic Acid (Folic Acid) 0.8 mg DAILY PO Last administered on 12/16/16 08:29; Admin Dose 0.8 MG; Start 12/15/16 at 09:00 CALVIN PALMA MD Dec 16, 2016 11:39
--- NOTE | 2016-12-17 08:03 | DS ---
DATE OF ADMISSION: 12/14/2016 DATE OF DISCHARGE: 12/16/2016 CONDITION ON DISCHARGE: Stable. ADMITTING DIAGNOSIS: Left hip osteoarthritis. DISCHARGE DIAGNOSIS: Status post left anterior total hip arthroplasty. PROCEDURE PERFORMED: Left anterior total hip arthroplasty. HOSPITAL COURSE: This is a 61-year-old male who was seen in the clinic initially complaining of left hip pain. X-rays were obtained and demonstrated advanced osteoarthritis of the left hip, and it was thought he would benefit from a left anterior total hip arthroplasty. On 12/14/2016, the patient was admitted and taken to the operating room where he underwent a left anterior total hip arthroplasty. There were no intraoperative complications. The patient tolerated the procedure well. He was taken to the recovery room in stable condition. Pain was well controlled with oral pain medication. He was started on aspirin and SCDs for DVT prophylaxis. He remained hemodynamically stable and neurovascularly intact throughout his hospital stay. He began physical therapy on postoperative day 0 and was deemed stable for discharge on postoperative day 2. Prior to discharge, the inspected and noted to be clean, dry, and intact. Dressing changes were done prior to the patient going home. LABORATORY ANALYSIS: Hemoglobin 12.4, hematocrit 37.1. Chemistry panel was within normal limits. DISCHARGE MEDICATIONS: 1. Carlisle 5/325 mg. 2. Tramadol 50. 3. Aspirin 325 mg. Additionally, the patient is to resume all of his normal home medications. DISCHARGE INSTRUCTIONS: The patient will be discharged home in stable condition. He is to resume a normal diet. Activity includes weightbearing as tolerated on the left lower extremity. He began physical therapy with home health. He will be discharged home with the medications noted above and is to resume all of his normal home medications. The patient is to call the office or go to the emergency room for any concerns including increased redness, swelling, drainage, fever, or any concern regarding the operation or site of incision. FOLLOWUP: The patient is to follow up in the office on 12/24/2016. Dictated By: VON CLEMENS/LISHA Conf#: [id number] DID#: [id number] TESHA
== END 2016-12-16 14:09 | disposition home health service (06) | DRG 470 ==
LOC: REC 05:54 → MS1 11:24
PROVIDERS: ADMIT Orthopaedic Surgery; ATTEND Orthopaedic Surgery
PROC: 0SRB04Z Replacement of Left Hip Joint with Ceramic on Polyethylene Synthetic Substitute, Open Approach (ICD-10-PCS; principal; 2016-12-14 07:00)
DX: M16.12 Unilateral primary osteoarthritis, left hip (principal); I10 Essential (primary) hypertension; I25.10 Atherosclerotic heart disease of native coronary artery without angina pectoris
CPT/HCPCS: 72170; 73500; 73530; 80048; 81001; 81003; 82962; 85014; 85018; 86850; 86900; 86901; 86920; 87081; 87086; 97110; 97116; 97162; 97167; 97530; Z7610; C1776; C9290; J0131; J0171; J0690; J0697; J0735; J1100; J1815; J1885; J2001; J2250; J2274; J2405; J2710; J3010; J3370; J7120

== ENCOUNTER → 2016-12-24 | Outpatient (CLI) | payer BC ==
[~2016-12-24] MED LIST changes: -CLOP75TA27 PO
--- NOTE | 2016-12-24 10:28 | RADRPT ---
PROCEDURE: XR pelvis/left hip. CLINICAL INDICATION: Hip pain TECHNIQUE: AP pelvis/lateral left hip view performed. COMPARISON: 12/14/2016 FINDINGS: There is a left total hip replacement. There are skin milagro lateral to the left hip. There is no evidence of loosening of the prosthesis. There is moderate right hip osteoarthrosis. This is associated with joint space narrowing, subchondr al sclerosis and osteophytosis. There is normal osseous mineralization. No fractures or osseous le sions are identified. The soft tissues are unremarkable. IMPRESSION: Left total hip replacement. Moderate right hip osteoarthrosis. RPTAT: HGDB .Philip Mcclain MD, MD Date Time Electronically viewed and signed by .Philip Mcclain MD, on 12/24/2016 10:27 .B/
--- NOTE | 2016-12-24 11:30 | HKNOTE ---
DATE OF SERVICE: 12/24/2016 INTERVAL HISTORY: The patient presents today for his first postoperative evaluation. He is 10 days status post left anterior total hip arthroplasty. He is doing well overall. He is having some mild pain and has been using Napoleon and tramadol as needed. He has been compliant with his DVT prophylaxis and is taking aspirin twice daily. He denies any fevers or chills. He is working with home health. He is ambulating with a front-wheeled walker. He presents today for his first postoperative evaluation. PHYSICAL EXAMINATION: Today, he is alert and oriented x4, and in no acute distress. Exam of the incision demonstrates it to be clean, dry and intact. There is no erythema or warmth. There is no ecchymosis. There is minimal soft tissue swelling. There is no pus or drainage noted. Homans sign is negative. Compartments are soft. There is slight leg-length discrepancy. He is neurovascularly intact distally. IMAGING: X-rays of the left hip were obtained today and reviewed by me. They demonstrate good anatomic fixation with no fracture or dislocation identified. ASSESSMENT: Ten days status post left anterior total hip arthroplasty. PLAN: The milagro were removed today, and Steri-Strips were applied. The patient is to continue taking aspirin twice daily for 6 weeks for DVT prophylaxis. His tramadol and Napoleon prescriptions were refilled today. The patient was given tramadol 50 mg, quantity of 60, as well as Napoleon 5/325 mg, quantity of 60, with 0 refills. He is to continue working with home health and transition to a cane as indicated and tolerated. We will see him back in 4 weeks for repeat evaluation. The patient is to call the office if he has any problems in the interim. Dictated By: VON CLEMENS/LISHA Conf#: [id number] DID#: [id number] MTDD
== END | disposition home or self-care (01) ==
LOC: HKI 09:59
PROVIDERS: ATTEND Orthopaedic Surgery
DX: Z47.1 Aftercare following joint replacement surgery (principal); Z96.642 Presence of left artificial hip joint
CPT/HCPCS: 73502

== ENCOUNTER → 2017-01-21 | Outpatient (CLI) | payer BC ==
[~2017-01-21] MED LIST changes: -METF-382 PO; +METF500T4 PO
--- NOTE | 2017-01-21 11:44 | RADRPT ---
PROCEDURE: XR left knee. CLINICAL INDICATION: Knee pain TECHNIQUE: AP weightbearing, PA weightbearing, lateral weightbearing and sunrise views are availab le for review. COMPARISON: None available FINDINGS: The osseous structures are normal in mineralization, architecture and alignment. No fractures are i dentified. No osseous lesions are identified. The joints are unremarkable. The soft tissues are u nremarkable. IMPRESSION: Unremarkable examination RPTAT: HGDB .Philip Mcclain MD, MD Date Time Electronically viewed and signed by .Philip Mcclain MD, MD on 01/21/2017 11:44 .B/
--- NOTE | 2017-01-21 11:45 | RADRPT ---
PROCEDURE: XR pelvis/left hip. CLINICAL INDICATION: Hip pain TECHNIQUE: AP pelvis/lateral left hip view performed. COMPARISON: 12/14/2016 FINDINGS: There is a left total hip replacement. There is no evidence of loosening of the prosthesis. No hardw are failure identified. There is moderate to severe right hip osteoarthrosis. This is associated with joint space narrowing, subchondral sclerosis and osteophytosis. There is normal osseous mineralization. No fractures or osseous lesions are identified. The soft tissues are unremarkable. IMPRESSION: Left total hip replacement. Moderate to severe right hip osteoarthrosis. RPTAT: HGDB .Philip Mcclain MD, MD Date Time Electronically viewed and signed by .Philip Mcclain MD, MD on 01/21/2017 11:45 .B/
== END | disposition home or self-care (01) ==
LOC: HKI 10:35
PROVIDERS: ATTEND Orthopaedic Surgery
DX: Z47.1 Aftercare following joint replacement surgery (principal); Z96.642 Presence of left artificial hip joint
CPT/HCPCS: 73502

== ENCOUNTER → 2017-03-23 | Outpatient (CLI) | payer BC ==
--- NOTE | 2017-03-23 14:18 | RADRPT ---
PROCEDURE: XR pelvis/left hip. CLINICAL INDICATION: Hip pain TECHNIQUE: AP pelvis/AP and lateral left hip views performed. COMPARISON: 01/21/2017 FINDINGS: There is a left total hip replacement. There is no evidence of loosening of the prosthesis. No hardw are failure identified. There is moderate to severe right hip osteoarthrosis. This is associated with joint space narrowing, subchondral sclerosis, subchondral cyst formation and osteophytosis. There is normal osseous wrapper layer and examiner soft work alization. No fractures or osseous lesions are identified. The soft tissues are unremarkable. IMPRESSION: Left total hip replacement. Moderate to severe right hip osteoarthrosis. RPTAT: HGDB .Philip Mcclain MD, MD Date Time Electronically viewed and signed by .Philip Mcclain MD, on 03/23/2017 14:18 .B/
== END | disposition home or self-care (01) ==
LOC: HKI 10:57
PROVIDERS: ATTEND Orthopaedic Surgery
DX: M25.551 Pain in right hip (principal); M16.11 Unilateral primary osteoarthritis, right hip; Z96.642 Presence of left artificial hip joint
CPT/HCPCS: 73502; G0463